=== PATIENT | male | born 1960 | race Caucasian/White ===

== ENCOUNTER → 2017-07-13 | Outpatient (CLI) | payer OTHER ==
[~2017-07-13] MED LIST: /ESOM40CA OR; ASPI325T OR; BISO10TA2 OR; GLUC1000 OR; LISI20TA5 OR; PLAV75TA2 OR; REQU4TAB3 OR; SIMV40TA2 OR; SYMB80AE IN; SYMB80AE INH; VENTAER IN
--- NOTE | 2017-07-14 07:35 | REP ---
Clinical: Carotid stenosis history of hypertension and cardiac stenting. Technique: Jessica scale and color Doppler evaluation using linear high frequency transducer Findings: Two-dimensional jessica scale and color images demonstrate smooth bilateral intimal thickening and small amounts of mixed plaque material at the carotid bulbs and proximal internal carotid arteries with normal laminar flow and no appreciable narrowing. Color Doppler interrogation demonstrates normal arterial wave patterns and velocities with no significant spectral broadening. Normal flow direction is appreciated in the bilateral vertebral arteries. RIGHT (cm/s) LEFT (cm/s) ICA peak systolic velocity 62.4 39.6 ICA diastolic velocity 28.7 14.0 ECA peak systolic velocity 56.7 959.8 CCA peak systolic velocity 75.6 86.1 ICA/CCA ratio 0.83 0.46 Impression: No hemodynamically significant areas of narrowing or stenosis appreciated. Based on set standards narrowing falls within the less than 50% range. Signed by Parag Foster MD 07/14/2017 07:27 A
== END ==
LOC: M RAD 13:02
PROVIDERS: ATTEND Surgery Vascular Surgery
DX: I65.23 Occlusion and stenosis of bilateral carotid arteries (principal)

== ENCOUNTER → 2017-11-16 | Outpatient (CLI) | payer OTHER | LOC: M WUC 08:00 | DX: N50.819 Testicular pain, unspecified (principal) ==

== ENCOUNTER → 2017-11-16 | Outpatient (REF) | payer OTHER | LOC: M LAB REF 17:25 | DX: N50.812 Left testicular pain (principal) | CPT/HCPCS: 87086 ==

== ENCOUNTER → 2017-11-16 | Outpatient (CLI) | payer OTHER ==
[2017-11-16 16:21] LABS: BASO % 0.4 % (0.0-1.0); EOS # 0.1 10^3/uL (0.0-0.50); EOS % 1.2 % (0.0-3.0); HEMATOCRIT 53.3 % (42.0-52.0); HEMOGLOBIN 17.5 g/dl (14.0-18.0); IMMATURE GRANULOCYTE # 0.1 10^3/uL (0-0); IMMATURE GRANULOCYTE % 0.6 % (0-0); LYMPH # 1.3 10^3/uL (1.5-4.5); LYMPH % 16.1 % (24.0-44.0); MEAN CORPUSCULAR HEMOGLOBIN 29.5 pg (27.0-33.0); MEAN CORPUSCULAR HGB CONC 32.8 g/dl (32.0-36.5); MEAN CORPUSCULAR VOLUME 89.7 fl (80.0-96.0); MONO # 0.5 10^3/uL (0.0-0.8); MONO % 5.8 % (0.0-5.0); NEUTROPHILS # 5.9 10^3/uL (1.8-7.7); NEUTROPHILS % 75.9 % (36.0-66.0); PLATELET COUNT, AUTOMATED 281 10^3/uL (150-450); RED BLOOD COUNT 5.94 10^6/uL (4.30-6.10); RED CELL DISTRIBUTION WIDTH 13.8 % (11.5-14.5); WHITE BLOOD COUNT 7.8 10^3/uL (4.0-10.0)
[2017-11-16 16:24] LABS: SUSPECT SAMPLE POS FLAG
== END ==
LOC: M LAB 14:02
DX: N50.819 Testicular pain, unspecified (principal)
CPT/HCPCS: 76870

== ENCOUNTER → 2017-11-26 | Outpatient (REF) | payer OTHER ==
[2017-11-26 18:07] LABS: APPEARANCE, URINE HAZY (CLEAR); BACTERIA, URINE AUTO NEGATIVE (NEGATIVE); BILIRUBIN, URINE AUTO NEGATIVE (NEGATIVE); BLOOD, URINE BLOOD NEGATIVE (NEGATIVE); COLOR, URINE YELLOW (YELLOW); GLUCOSE, URINE (UA) AUTO NEGATIVE (NEGATIVE); KETONE, URINE AUTO NEGATIVE (NEGATIVE); LEUKOCYTE ESTERASE, URINE AUTO NEGATIVE (NEGATIVE); NITRITE, URINE AUTO NEGATIVE (NEGATIVE); PROTEIN, URINE AUTO NEGATIVE (NEGATIVE); RBC, URINE AUTO 3 /HPF (0-3); SPECIFIC GRAVITY URINE AUTO 1.018 (1.002-1.035); SQUAMOUS EPITHELIAL CELL UR AU 0 /HPF (0-6); UROBILINOGEN, URINE AUTO 0.2 mg/dL (0.0-2.0); WBC, URINE AUTO 3 /HPF (0-3)
== END ==
LOC: M SMT 17:09
DX: N50.819 Testicular pain, unspecified (principal)
CPT/HCPCS: 81001

== ENCOUNTER → 2017-12-28 | Outpatient (CLI) | payer OTHER ==
[2017-12-28 16:49] LABS: ANION GAP 4 MEQ/L (8-16); BLOOD UREA NITROGEN 12 MG/DL (7-18); CALCIUM LEVEL 8.7 MG/DL (8.5-10.1); CARBON DIOXIDE LEVEL 30 MEQ/L (21-32); CHLORIDE LEVEL 107 MEQ/L (98-107); CREATININE FOR GFR 0.83 MG/DL (0.70-1.30); GLOMERULAR FILTRATION RATE > 60.0 (>56); GLUCOSE, FASTING 86 MG/DL (70-100); POTASSIUM SERUM 4.8 MEQ/L (3.5-5.1); SODIUM LEVEL 141 MEQ/L (136-145)
== END ==
LOC: M LAB 15:53
DX: R10.9 Unspecified abdominal pain (principal)
CPT/HCPCS: 80048

== ENCOUNTER → 2018-01-04 | Outpatient (CLI) | payer OTHER ==
[~2018-01-04] MED LIST changes: -/ESOM40CA OR; -ASPI325T OR; -BISO10TA2 OR; -GLUC1000 OR; +ISOVUE-370 76% 100ML VIAL (Q9967) As Ordered; -LISI20TA5 OR; -PLAV75TA2 OR; -REQU4TAB3 OR; -SIMV40TA2 OR; -SYMB80AE IN; -SYMB80AE INH; -VENTAER IN
== END ==
LOC: M RAD 14:37
DX: N40.0 Benign prostatic hyperplasia without lower urinary tract symptoms (principal); K76.0 Fatty (change of) liver, not elsewhere classified; K57.30 Diverticulosis of large intestine without perforation or abscess without bleeding
CPT/HCPCS: Q9967

== ENCOUNTER → 2018-01-08 | Outpatient (CLI) | payer OTHER ==
[2018-01-09 14:10] LABS: PSA TOTAL 1.1 ng/mL (0.0-4.0)
== END ==
LOC: M SMT 09:58
DX: N50.819 Testicular pain, unspecified (principal)
CPT/HCPCS: 84154

== ENCOUNTER → 2018-09-06 | Outpatient (CLI) | payer OTHER | LOC: M RAD 11:51 | DX: J20.8 Acute bronchitis due to other specified organisms (principal) | CPT/HCPCS: 71046 ==

== ENCOUNTER → 2019-01-31 | Outpatient (CLI) | payer MEDICARE ==
[~2019-01-31] MED LIST changes: +ASPI325T OR; +BISO10TA2 OR; +GLUC1000 OR; -ISOVUE-370 76% 100ML VIAL (Q9967) As Ordered; +LISI20TA5 OR; +NEXI1CAP3 OR; +PLAV75TA2 OR; +REQU4TAB3 OR; +SIMV40TA2 OR; +SYMB80AE IN; +SYMB80AE INH; +VENTAER IN
== END ==
LOC: M LAB 11:22
PROVIDERS: ATTEND Nurse Practitioner Women's Health
DX: Z12.5 Encounter for screening for malignant neoplasm of prostate (principal)
CPT/HCPCS: 36415; G0103

== ENCOUNTER → 2019-05-25 | Outpatient (CLI) | payer MEDICARE ==
--- NOTE | 2019-05-26 06:17 | REP ---
Clinical: Stenosis. History of right endarterectomy . Technique: Jessica scale and color Doppler evaluation using linear high frequency transducer Findings: Two-dimensional jessica scale and color images demonstrate bilateral intimal thickening with normal arterial lumen, laminar flow and no appreciable narrowing. Color Doppler interrogation demonstrates normal arterial wave patterns and velocities with no significant spectral broadening. Normal flow direction is appreciated in the bilateral vertebral arteries. RIGHT (cm/s) LEFT (cm/s) ICA peak systolic velocity 36.4 40.6 ICA diastolic velocity 15.4 15.3 ECA peak systolic velocity 68.2 77.7 CCA peak systolic velocity 89.5 77.4 ICA/CCA ratio 0.4 0.5 Impression: No hemodynamically significant areas of narrowing or stenosis appreciated. Based on set standards narrowing falls within the normal/less than 50% range. Electronically Signed by Parag Foster MD 05/26/2019 06:09 A
== END ==
LOC: M RAD 12:55
PROVIDERS: ATTEND Physician Assistant
DX: I65.23 Occlusion and stenosis of bilateral carotid arteries (principal)

== ENCOUNTER 2019-07-26 12:14 | Emergency (ER) | payer MEDICARE ==
[~2019-07-26] VITALS: Ht 170.2 cm; Wt 109.5 kg
[2019-07-26] MEDS ORDERED: METO1TAB87 PO (12:33)
[2019-07-26] MEDS ORDERED: METF500T13 PO (12:33)
[2019-07-26] MEDS ORDERED: ATOR40TA75 PO (12:33)
[2019-07-26] MEDS ORDERED: CHLO125TA PO (12:33)
[2019-07-26] MEDS ORDERED: ASPI81CH33 PO (12:33)
[2019-07-26] MEDS ORDERED: TIMO0.5S29 (12:33)
[2019-07-26] MEDS ORDERED: CHAN1PAK13 PO (12:33)
[2019-07-26] MEDS ORDERED: NITR0.4S14 SL (12:33)
[2019-07-26] MEDS ORDERED: BIMA01SOL OD (12:33)
[2019-07-26] MEDS ORDERED: ASPIRIN 81 MG CHEW TABLET PO ONE (13:00)
[2019-07-26] MEDS: NITROGLYCERIN 0.4 MG SUBL TABLET SL PRN ×2 (13:27→13:40)
--- NOTE | 2019-07-26 13:27 | REP ---
Portable chest, 12:51 p.m., single AP view with the patient semi upright: Comparison is 09/06/2018. There are chronic stable changes consisting of multiple old right rib fractures, multiple tiny metallic shrapnel fragments in the right posterior chest wall soft tissues, right paramediastinal surgical clips, and volume loss in the right knee thorax with elevation of the right hemidiaphragm. There are no acute infiltrates or pleural effusions. There are no masses or nodules. There are sternotomy wires, unchanged. Cardiac size is enlarged, unchanged. Impression: There are chronic stable findings in the right hemithorax. There is chronic cardiomegaly and sternotomy wires. There are no acute cardiopulmonary findings. Electronically Signed by Abelardo Triana MD 07/26/2019 01:18 P
[2019-07-26 13:40] VITALS: BP 107/59
[2019-07-26 13:47] LABS: ALBUMIN 3.8 GM/DL (3.2-5.2); ALT/SGPT 61 U/L (12-78); BILIRUBIN,DIRECT < 0.1 MG/DL (0.0-0.2); BILIRUBIN,TOTAL 0.7 MG/DL (0.2-1.0); BLOOD UREA NITROGEN 15 MG/DL (7-18); CALCIUM LEVEL 8.8 MG/DL (8.5-10.1); CARBON DIOXIDE LEVEL 27 MEQ/L (21-32); CHLORIDE LEVEL 103 MEQ/L (98-107); CK-MB VALUE MASS 1.4 NG/ML (<3.6); CPK CREATINE PHOSPHOKINASE 203 U/L (39-308); CREATININE FOR GFR 0.96 MG/DL (0.70-1.30); GLOMERULAR FILTRATION RATE > 60.0 (>56); GLUCOSE, FASTING 111 MG/DL (70-100); LIPASE 152 U/L (73-393); MB/CK RELATIVE INDEX 0.69 (< OR =4); POTASSIUM SERUM 5.9 MEQ/L (3.5-5.1); SODIUM LEVEL 137 MEQ/L (136-145); TOTAL PROTEIN 7.8 GM/DL (6.4-8.2); TROPONIN I < 0.02 NG/ML (< 0.10)
[2019-07-26 13:52] LABS: BASO # 0.1 10^3/uL (0.0-0.2); BASO % 0.6 % (0.0-1.0); EOS # 0.1 10^3/uL (0.0-0.5); EOS % 1.7 % (0.0-3.0); HEMATOCRIT 51.7 % (42.0-52.0); LYMPH # 1.1 10^3/uL (1.5-5.0); LYMPH % 13.9 % (24.0-44.0); MEAN CORPUSCULAR HEMOGLOBIN 30.1 pg (27.0-33.0); MEAN CORPUSCULAR HGB CONC 33.1 g/dl (32.0-36.5); MEAN CORPUSCULAR VOLUME 90.9 fl (80.0-96.0); MONO # 0.6 10^3/uL (0.0-0.8); MONO % 7.2 % (0.0-5.0); NEUTROPHILS # 6.1 10^3/uL (1.5-8.5); NEUTROPHILS % 75.7 % (36.0-66.0); PLATELET COUNT, AUTOMATED 232 10^3/uL (150-450); RED BLOOD COUNT 5.69 10^6/uL (4.30-6.10)
[2019-07-26 13:53] LABS: INR 0.94; PROTHROMBIN TIME 12.3 SECONDS (11.8-14.0)
[2019-07-26 13:54] LABS: PARTIAL THROMBOPLASTIN TIME 28.7 SECONDS (25.0-38.4)
[2019-07-26 13:57] LABS: HEMOGLOBIN 17.1 g/dl (13.5-17.5)
[2019-07-26] MEDS ORDERED: ISOVUE-370 76% 100ML VIAL (Q9967) As Ordered ONE (14:55)
--- NOTE | 2019-07-26 15:40 | REP ---
CT ANGIOGRAM CHEST: TECHNIQUE: Axial contrast enhanced images from the thoracic inlet to the upper abdomen using 100 mL Isovue 370 intravenous contrast material with multiplanar reformations. COMPARISON: 07/10/2013. There is no CT evidence of pulmonary embolism. There is no thoracic aortic aneurysm or dissection. Mild scattered atherosclerotic calcifications are seen of the thoracic aorta. There is mild cardiomegaly. There is no pleural or pericardial effusion. There is no evidence of mediastinal, hilar, or chest wall lymphadenopathy. There has been prior right upper lobectomy with postsurgical deformities of right ribs and stable bilateral parenchymal fibrotic changes. A 4 mm nodular density in the left upper lobe is stable compared to the prior CT. No new infiltrates are seen bilaterally. There are degenerative changes of the spine. There appears to be diffuse fatty infiltration of the liver. IMPRESSION: No CT evidence of pulmonary embolism or aortic dissection. Mild cardiomegaly. Chronic postsurgical and fibrotic changes. Electronically Signed by Abelardo Jessica MD 07/27/2019 06:08 P
[2019-07-26 19:10] LABS: CK-MB VALUE MASS 1.2 NG/ML (<3.6); CPK CREATINE PHOSPHOKINASE 93 U/L (39-308); MB/CK RELATIVE INDEX 1.29 (< OR =4); TROPONIN I < 0.02 NG/ML (< 0.10)
[2019-07-26 19:52] VITALS: BP 149/85
--- NOTE | 2019-07-26 20:37 | ECGEPIP ---
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
--- NOTE | 2019-07-26 20:47 | ECGEPIP ---
[facility] - ED Test Date: 2019-07-26 Pat Name: HALLE TRISTAN Department: Room: - Gender: Male [employer]er: joie : 1960 Requested By: NIK Ruiz Order Number: [id number] Reading MD: Serg Tobias Measurements Intervals [place] Rate: 66 P: 31 [place]: 172 QRS: 128 QRSD: 88 T: 93 QT: 372 QTc: 392 Interpretive Statements SINUS RHYTHM POSSIBLE PRIOR INFERIOR INFARCT PATTERN CONSISTENT WITH PULMONARY DISEASE INCOMPLETE RIGHT BUNDLE BRANCH BLOCK NONSPECIFIC T WAVE ABNORMALITIES SIMILAR TO PRIOR ON SAME DATE Electronically Signed on 07-26-2019 20:47:53 EDT by Serg Tobias
== END 2019-07-26 19:53 | disposition home or self-care (01) ==
LOC: M ED 12:14
DX: R07.89 Other chest pain (principal); I51.7 Cardiomegaly; Z95.1 Presence of aortocoronary bypass graft; Z95.5 Presence of coronary angioplasty implant and graft; F17.210 Nicotine dependence, cigarettes, uncomplicated; Z88.0 Allergy status to penicillin; Z79.899 Other long term (current) drug therapy
CPT/HCPCS: 36415; 71045; 71275; 80048; 80076; 82550; 82553; 83690; 84484; 85025; 85610; 85730; 93005; 93041; 94760; 99285; Q9967

== ENCOUNTER → 2019-08-19 | Outpatient (CLI) | payer MEDICARE ==
[~2019-08-19] MED LIST changes: +ASPI81CH33 PO; +ATOR40TA75 PO; +BIMA01SOL OD; +CHAN1PAK13 PO; +CHLO125TA PO; +METF500T13 PO; +METO1TAB87 PO; +NITR0.4S14 SL; +TIMO0.5S29
[2019-08-19 12:03] LABS: ALBUMIN 3.6 GM/DL (3.2-5.2); ALT/SGPT 48 U/L (12-78); BILIRUBIN,TOTAL 0.3 MG/DL (0.2-1.0); BLOOD UREA NITROGEN 11 MG/DL (7-18); CALCIUM LEVEL 8.9 MG/DL (8.5-10.1); CARBON DIOXIDE LEVEL 31 MEQ/L (21-32); CHLORIDE LEVEL 102 MEQ/L (98-107); CHOLESTEROL LEVEL 193 MG/DL (<200); CHOLESTEROL RISK RATIO 4.825 (<5); CREATININE FOR GFR 0.96 MG/DL (0.70-1.30); GLOMERULAR FILTRATION RATE > 60.0 (>56); GLUCOSE, FASTING 141 MG/DL (70-100); HDL CHOLESTEROL 40 MG/DL (>40); LDL CHOLESTEROL 104 MG/DL (<100); NON-HDL-C 153 MG/DL; NT-PRO BNP 43 PG/ML (<125); POTASSIUM SERUM 4.7 MEQ/L (3.5-5.1); SODIUM LEVEL 139 MEQ/L (136-145); TRIGLYCERIDES LEVEL 243 MG/DL (<150)
== END ==
LOC: M LAB 10:28
PROVIDERS: ATTEND Physician Assistant
DX: E78.00 Pure hypercholesterolemia, unspecified (principal)

== ENCOUNTER → 2019-11-23 | Outpatient (CLI) | payer MEDICARE ==
--- NOTE | 2019-11-23 14:56 | REP ---
Bilateral carotid artery duplex ultrasound: Peak flow velocity analysis: RIGHT LEFT ICA Peak flow velocity cm/sec 63.1 cm/sec 64.9 cm/sec ICA Diastolic flow velocity cm/sec 20 point a cm/sec 22 point see cm/sec ICA/CCA Ratio zero point, seventh cm/sec 0.81 cm/sec ECA Peak flow velocity cm/sec 90.4 cm/sec 112 cm/sec CCA Peak flow velocity cm/sec 120 cm/sec 121 cm/sec There is shallow atheromatous plaque on the right and moderate atheromatous plaque on the left. Peak flow velocities are normal bilaterally. There is no stenosis on the right or the left. There is antegrade flow in the vertebral arteries bilaterally. Electronically Signed by Abelardo Triana MD 11/23/2019 02:48 P
== END ==
LOC: M RAD 09:55
PROVIDERS: ATTEND Internal Medicine
DX: I65.23 Occlusion and stenosis of bilateral carotid arteries (principal)

== ENCOUNTER → 2020-09-04 | Outpatient (CLI) | payer MEDICARE ==
--- NOTE | 2020-09-05 03:11 | REP ---
INDICATION: CHRONIC OBSTRUCTIVE PULMONARY DISEASE, UNSPECIFIED COMPARISON: 07/26/2019 TECHNIQUE: PA and lateral. FINDINGS: Chronic appearing pleuroparenchymal changes involving the right hemithorax remain relatively stable. Left hemithorax is clear. Visualized portions of the mediastinum and cardiac silhouette remain unchanged. IMPRESSION: Relatively chronic stable appearing changes as compared to 07/26/2019. If the patient remains symptomatic consider chest CT for further investigation. <Electronically signed by Parag Foster > 09/05/20 [id number]
== END ==
LOC: M RAD 13:05
PROVIDERS: ATTEND Internal Medicine Pulmonary Disease
DX: J44.9 Chronic obstructive pulmonary disease, unspecified (principal)

== ENCOUNTER → 2021-03-27 | Outpatient (CLI) | payer MEDICARE ==
--- NOTE | 2021-03-28 06:05 | REP ---
INDICATION: NICOTINE DEPENDENCE COMPARISON: 07/26/2019 TECHNIQUE: Axial noncontrast images from the thoracic inlet to the upper abdomen using low-dose lung screening technique (LDCT). FINDINGS: Postsurgical pleuroparenchymal changes and volume loss involving the right hemithorax including primarily apical and basilar scarring as well as stable 8.5 mm nodule (series 201; image 52). No acute focal consolidation, suspicious nodule or mass lesion. No effusion. No pneumothorax. Tracheobronchial tree is patent. IMPRESSION: Lung rads category 2. Chronic changes. Stable 8.5 mm nodule. Management recommendations include annual low-dose CT surveillance. <Electronically signed by Parag Foster > 03/28/21 0601
== END ==
LOC: M RAD 12:35
PROVIDERS: ATTEND Internal Medicine Pulmonary Disease
DX: F17.210 Nicotine dependence, cigarettes, uncomplicated (principal)

== ENCOUNTER 2021-12-23 14:37 | Emergency (ER) | payer MEDICARE ==
[~2021-12-23] VITALS: Ht 172.7 cm; Wt 105.2 kg
[2021-12-23] MEDS ORDERED: FURO20TA2 PO (14:44)
[2021-12-23 16:54] VITALS: BP 158/92
== END 2021-12-23 17:18 | disposition home or self-care (01) ==
LOC: M ED 14:37
DX: S00.03XA Contusion of scalp, initial encounter (principal); W00.0XXA Fall on same level due to ice and snow, initial encounter; Y92.009 Unspecified place in unspecified non-institutional (private) residence as the place of occurrence of the external cause; Y93.9 Activity, unspecified; Y99.9 Unspecified external cause status; M47.812 Spondylosis without myelopathy or radiculopathy, cervical region; M48.02 Spinal stenosis, cervical region; I25.2 Old myocardial infarction; I25.10 Atherosclerotic heart disease of native coronary artery without angina pectoris; J44.9 Chronic obstructive pulmonary disease, unspecified; F17.200 Nicotine dependence, unspecified, uncomplicated; Z88.8 Allergy status to other drugs, medicaments and biological substances; Z79.899 Other long term (current) drug therapy

== ENCOUNTER → 2022-01-02 | Outpatient (CLI) | payer MEDICARE ==
[~2022-01-02] MED LIST changes: +FURO20TA2 PO
== END ==
LOC: M RAD 14:18
PROVIDERS: ATTEND Internal Medicine
DX: I65.29 Occlusion and stenosis of unspecified carotid artery (principal)

== ENCOUNTER → 2022-05-30 | Outpatient (CLI) | payer MEDICARE | LOC: M WUC 14:31 | PROVIDERS: ATTEND Physician Assistant Medical | DX: M19.011 Primary osteoarthritis, right shoulder (principal); R93.6 Abnormal findings on diagnostic imaging of limbs; Z98.890 Other specified postprocedural states ==

== ENCOUNTER → 2022-07-16 | Outpatient (CLI) | payer MEDICARE | LOC: M RAD 14:53 | PROVIDERS: ATTEND Internal Medicine Pulmonary Disease | DX: Z87.891 Personal history of nicotine dependence (principal); F17.210 Nicotine dependence, cigarettes, uncomplicated ==

== ENCOUNTER → 2022-11-14 | Outpatient (CLI) | payer MEDICARE | LOC: M CARPUL 10:23 | PROVIDERS: ATTEND Internal Medicine | DX: R06.00 Dyspnea, unspecified (principal); I08.0 Rheumatic disorders of both mitral and aortic valves ==

== ENCOUNTER → 2022-12-22 | Outpatient (REF) | payer MEDICARE | LOC: M LAB REF 16:02 | PROVIDERS: ATTEND Internal Medicine | DX: R06.00 Dyspnea, unspecified (principal); I50.33 Acute on chronic diastolic (congestive) heart failure ==

== ENCOUNTER → 2022-12-23 | Outpatient (CLI) | payer MEDICARE | LOC: M WUC 13:37 | PROVIDERS: ATTEND Internal Medicine | DX: M54.2 Cervicalgia (principal) ==

== ENCOUNTER → 2023-07-30 | Outpatient (CLI) | payer MEDICARE ==
[~2023-07-30] MED LIST changes: +TIMO0.5S20; -TIMO0.5S29
== END ==
LOC: M RAD 07:41
PROVIDERS: ATTEND Internal Medicine Pulmonary Disease
DX: Z87.891 Personal history of nicotine dependence (principal)

== ENCOUNTER → 2024-03-15 | Outpatient (REF) | payer MEDICARE ==
[2024-03-17 08:11] LABS: ERYTHROPOIETIN 15.9 mIU/mL (2.6-18.5)
== END ==
LOC: M LAB REF 17:28
PROVIDERS: ATTEND Internal Medicine
DX: R71.8 Other abnormality of red blood cells (principal)

== ENCOUNTER 2024-04-11 16:12 | Emergency (ER) | payer OTHER ==
[~2024-04-11] VITALS: Ht 170.2 cm; Wt 99.1 kg
[2024-04-11 16:19] VITALS: TEMP 97.5
[2024-04-11] MEDS ORDERED: EZET10TA21 PO (16:29)
[2024-04-11] MEDS ORDERED: SEMA1PEN2 SQ (16:30)
[2024-04-11 18:15] LABS: BASO # 0.1 10^3/uL (0.0-0.2); BASO % 0.8 % (0.0-1.0); EOS # 0.5 10^3/uL (0.0-0.5); EOS % 3.7 % (0.0-3.0); HEMATOCRIT 68.8 % (42.0-52.0); LYMPH # 1.3 10^3/uL (1.5-5.0); LYMPH % 9.8 % (24.0-44.0); MEAN CORPUSCULAR HEMOGLOBIN 29.7 pg (27.0-33.0); MEAN CORPUSCULAR HGB CONC 32.7 g/dl (32.0-36.5); MEAN CORPUSCULAR VOLUME 90.8 fl (80.0-96.0); MONO # 0.9 10^3/uL (0.0-0.8); MONO % 6.9 % (2.0-8.0); NEUTROPHILS % 77.1 % (36.0-66.0); PLATELET COUNT, AUTOMATED 258 10^3/uL (150-450); RED BLOOD COUNT 7.58 10^6/uL (4.30-6.10)
[2024-04-11 18:17] LABS: HEMOGLOBIN 22.5 g/dl (13.5-17.5)
[2024-04-11 18:46] LABS: BLOOD UREA NITROGEN 16 MG/DL (9-23); CALCIUM LEVEL 8.9 MG/DL (8.3-10.6); CARBON DIOXIDE LEVEL 25 MMOL/L (20-31); CHLORIDE LEVEL 103 MMOL/L (98-107); CREATININE FOR GFR 1.16 MG/DL (0.70-1.30); GLOMERULAR FILTRATION RATE > 60.0 (>49); GLUCOSE, FASTING 191 MG/DL (74-106); POTASSIUM SERUM 4.4 MMOL/L (3.5-5.1); SODIUM LEVEL 138 MMOL/L (136-145)
[2024-04-11] MEDS: SODIUM CHLORIDE 0.9% 1000ML IV STA (19:09)
[2024-04-11] MEDS: ONDANSETRON 4MG 2ML VIAL IV ONE (19:10)
[2024-04-11] MEDS: PANTOPRAZOLE 40MG VIAL IV ONE (19:10)
[2024-04-11 19:46] LABS: INR 1.07
[2024-04-11 19:54] LABS: PARTIAL THROMBOPLASTIN TIME 29.6 SECONDS (24.8-34.2); PROTHROMBIN TIME 13.6 SECONDS (12.5-14.5)
[2024-04-11 19:55] LABS: ETHYL ALCOHOL (ETHANOL) 0.006 % (0.000-0.010)
[2024-04-11 20:00] LABS: ALBUMIN 3.2 G/DL (3.2-5.2); ALKALINE PHOSPHATASE 144 U/L (46-116); ALT/SGPT 21 U/L (7.0-40); AST/SGOT 21 U/L (<34); BILIRUBIN,DIRECT 0.1 MG/DL (<0.4); BILIRUBIN,TOTAL 0.4 MG/DL (0.3-1.2); CK-MB VALUE MASS < 1.0 NG/ML (<3.6); CPK CREATINE PHOSPHOKINASE 58 U/L (46-171); MB/CK RELATIVE INDEX 1.72 (< OR =4); TOTAL PROTEIN 6.8 G/DL (5.7-8.2)
[2024-04-11] MEDS ORDERED: ROPI2TAB46 PO (21:05)
[2024-04-11] MEDS ORDERED: METO1TAB32 PO (21:05)
[2024-04-11] MEDS ORDERED: CLOP75TA2 PO (21:05)
[2024-04-11] MEDS ORDERED: TREL1AER INH (21:05)
[2024-04-11] MEDS ORDERED: ALBU8.5H INH (21:05)
[2024-04-11] MEDS ORDERED: FURO40TA2 PO (21:05)
[2024-04-11] MEDS ORDERED: ATOR80TA59 PO (21:05)
[2024-04-11] MEDS ORDERED: HOME MED LIST COMPLETE! XX SCH (21:10)
[2024-04-11 21:17] VITALS: BP 133/63; O2SAT 93
== END 2024-04-11 21:52 | disposition left against medical advice (07) ==
LOC: M ED 16:12
DX: K31.1 Adult hypertrophic pyloric stenosis (principal); N20.0 Calculus of kidney; I10 Essential (primary) hypertension; F17.200 Nicotine dependence, unspecified, uncomplicated; Z88.0 Allergy status to penicillin; Z79.52 Long term (current) use of systemic steroids; Z79.82 Long term (current) use of aspirin; Z79.899 Other long term (current) drug therapy; Z79.02 Long term (current) use of antithrombotics/antiplatelets
CPT/HCPCS: 74176; 80048; 80076; 82077; 82550; 82553; 84484; 85025; 85610; 85730; 86850; 86900; 86901; 96374; 96375; 99284; C9113; J2405

== ENCOUNTER 2024-04-15 18:14 | Inpatient (IN) | payer OTHER ==
[~2024-04-15] VITALS: Ht 172.7 cm; Wt 100.0 kg
[~2024-04-15 18:14] MED LIST changes: +ALBU8.5H INH; +ATOR80TA59 PO; +CLOP75TA2 PO; +EZET10TA21 PO; +FURO40TA2 PO; +METO1TAB32 PO; +ROPI2TAB46 PO; +SEMA1PEN2 SQ; +TREL1AER INH
[2024-04-15 19:33] LABS: HEMATOCRIT 67.1 % (42.0-52.0); MEAN CORPUSCULAR HGB CONC 34.4 g/dl (32.0-36.5); PLATELET COUNT, AUTOMATED 284 10^3/uL (150-450); RED BLOOD COUNT 7.71 10^6/uL (4.30-6.10); WHITE BLOOD COUNT 21.3 10^3/uL (4.0-10.0)
[2024-04-15 19:37] LABS: HEMOGLOBIN 23.1 g/dl (13.5-17.5)
[2024-04-15 19:51] LABS: LIPASE 24 U/L (12-53)
[2024-04-15 20:02] LABS: CK-MB VALUE MASS 2.2 NG/ML (<3.6)
[2024-04-15 20:05] LABS: EOSINOPHILS 4 % (0-3); LYMPHOCYTES 12 % (16-44); MONOCYTES 6 % (0-5); NEUTROPHILS 76 % (28-66); PLATELET ESTIMATE NORMAL (NORMAL)
[2024-04-15] MEDS ORDERED: ONDANSETRON 4MG 2ML VIAL IV ONE (20:05)
[2024-04-15 20:06] LABS: ANISOCYTOSIS 1+
[2024-04-15] MEDS: ONDANSETRON 4MG 2ML VIAL IV ONE (20:06)
[2024-04-15] MEDS: NS 1,000 ML IV ONE (20:06)
[2024-04-15] MEDS: MORPHINE 4 MG/ML 1ML VIAL IV ONE (20:08)
[2024-04-15 20:24] LABS: ALBUMIN 3.1 G/DL (3.2-5.2); ALKALINE PHOSPHATASE 190 U/L (46-116); ALT/SGPT 21 U/L (7.0-40); AST/SGOT 12 U/L (<34); BILIRUBIN,DIRECT 0.2 MG/DL (<0.4); BILIRUBIN,TOTAL 0.4 MG/DL (0.3-1.2); BLOOD UREA NITROGEN 20 MG/DL (9-23); CALCIUM LEVEL 8.4 MG/DL (8.3-10.6); CARBON DIOXIDE LEVEL 18 MMOL/L (20-31); CREATININE FOR GFR 1.97 MG/DL (0.70-1.30); GLOMERULAR FILTRATION RATE 36.7 (>49); GLUCOSE, FASTING 216 MG/DL (74-106); TOTAL PROTEIN 6.7 G/DL (5.7-8.2)
[2024-04-15 20:33] LABS: CPK CREATINE PHOSPHOKINASE 71 U/L (46-171); MB/CK RELATIVE INDEX 3.09 (< OR =4)
[2024-04-15 20:58] LABS: INR 1.12
[2024-04-15 21:01] LABS: PARTIAL THROMBOPLASTIN TIME 31.9 SECONDS (24.8-34.2)
[2024-04-15 21:22] LABS: CALCIUM LEVEL 8.3 MG/DL (8.3-10.6); CREATININE FOR GFR 2.21 MG/DL (0.70-1.30); GLOMERULAR FILTRATION RATE 32.2 (>49); MAGNESIUM LEVEL 1.4 MG/DL (1.8-2.4); PHOSPHORUS LEVEL 6.6 MG/DL (2.4-5.1); POTASSIUM SERUM 3.6 MMOL/L (3.5-5.1)
[2024-04-15 21:38] LABS: ACETONE/KETONE 0.71 MMOL/L (0.02-0.27)
[2024-04-15 21:46] LABS: VENOUS BASE EXCESS -5.2 (-2.0-2.0); VENOUS HCO3 19.9 MMOL/L (23.0-27.0); VENOUS O2 SATURATION 88.5 % (60.0-80.0); VENOUS PARTIAL PRESSURE CO2 38.7 mmHg (38.0-50.0); VENOUS PARTIAL PRESSURE O2 55.3 mmHg (30.0-50.0); VENOUS STANDARD HCO3 20.1 MMOL/L; VENOUS TOTAL CO2 21.1 MMOL/L (24.0-28.0)
[2024-04-15] MEDS: rOPINIRole 2MG TAB PO SCH (22:00)
[2024-04-15] MEDS: cefTRIAXone SOD 1 GM in D5W MINI-BAG PLUS 50 ML IV ONE (22:04)
[2024-04-15] MEDS: NS 1,900 ML in IV 1 EA IV ONE (22:04)
[2024-04-15] MEDS ORDERED: ONDA-83 PO (22:40)
[2024-04-15] MEDS ORDERED: ROPI2TAB46 PO (22:40)
[2024-04-15] MEDS ORDERED: HOME MED LIST COMPLETE! XX SCH (22:45)
[2024-04-15] MEDS: MAG SULF 1GM/100ML (MAG RUN) 1 GM in IV 1 EA IV ONE (22:56)
[2024-04-16] VITALS (7 sets, daily range): BP systolic 110–140; BP diastolic 55–75; TEMP 96.5–97.5; O2SAT 93–95
[2024-04-16] MEDS ORDERED: ACETAMINOPHEN TAB 650MG DOSE (2X325MG) PO PRN (00:15)
[2024-04-16] MEDS ORDERED: GLUCOSE 4 GM CHEW PO PRN (00:20)
[2024-04-16] MEDS ORDERED: DEXTROSE 50% 50ML SYRINGE IV PRN (00:20)
[2024-04-16] MEDS ORDERED: GLUCAGON INJ 1MG VIAL SC PRN (00:20)
[2024-04-16] MEDS: LR 1,000 ML IV ONE (00:42)
[2024-04-16] MEDS: metroNIDAZOLE 500 MG in IV 1 EA IV SCH (00:42)
[2024-04-16] MEDS ORDERED: ONDANSETRON 4MG 2ML VIAL IV PRN (02:00)
[2024-04-16] MEDS: KCL 20MEQ in NS 1000ML 1,000 ML IV SCH (02:17)
[2024-04-16] MEDS ORDERED: ALBUTEROL 90 MCG/ACT 8GM HFA INHALER INH SCH (04:00)
[2024-04-16 04:32] LABS: HEMATOCRIT 58.2 % (42.0-52.0); MEAN CORPUSCULAR HEMOGLOBIN 29.7 pg (27.0-33.0); MEAN CORPUSCULAR HGB CONC 33.8 g/dl (32.0-36.5); MEAN CORPUSCULAR VOLUME 87.8 fl (80.0-96.0); PLATELET COUNT, AUTOMATED 205 10^3/uL (150-450); RED BLOOD COUNT 6.63 10^6/uL (4.30-6.10); WHITE BLOOD COUNT 20.6 10^3/uL (4.0-10.0)
[2024-04-16 04:34] LABS: HEMOGLOBIN 19.7 g/dl (13.5-17.5)
[2024-04-16] MEDS ORDERED: ALBUTEROL 90 MCG/ACT 8GM HFA INHALER INH PRN (04:55)
[2024-04-16 05:05] LABS: ALBUMIN 2.2 G/DL (3.2-5.2); BILIRUBIN,TOTAL 0.3 MG/DL (0.3-1.2); CALCIUM LEVEL 7.3 MG/DL (8.3-10.6); CREATININE FOR GFR 1.55 MG/DL (0.70-1.30); GLOMERULAR FILTRATION RATE 48.5 (>49); MAGNESIUM LEVEL 1.6 MG/DL (1.8-2.4); POTASSIUM SERUM 3.3 MMOL/L (3.5-5.1); TOTAL PROTEIN 4.9 G/DL (5.7-8.2)
[2024-04-16] MEDS: HEPARIN SOD (PORCINE) 5000UNITS/ML 1ML VIAL/SYRINGE SC SCH (06:00)
[2024-04-16] MEDS: ADVAIR HFA 230/21MCG INHALER INH SCH (07:37)
[2024-04-16] MEDS: POTASSIUM CHLORIDE 10MEQ SR TABLET PO ONE (07:53)
[2024-04-16] MEDS: MAG SULF 1GM/100ML (MAG RUN) 1 GM in IV 1 EA IV ONE (07:53)
[2024-04-16] MEDS: INSULIN LISPRO (NovoLOG) PER UNIT SC SCH ×2 (07:53→21:00)
[2024-04-16] MEDS: LR 1,000 ML IV SCH (07:54)
[2024-04-16] MEDS: METOPROLOL SUCC *XL* 25MG TAB (TopROL *XL*) PO SCH (08:00)
[2024-04-16] MEDS: CLOPIDOGREL 75 MG TAB PO SCH (08:00)
[2024-04-16] MEDS: ATORVASTATIN 20 MG TAB PO SCH (08:00)
[2024-04-16] MEDS: ASPIRIN 81MG CHEW TABLET PO SCH (08:00)
[2024-04-16] MEDS: EZETIMIBE 10MG TABLET (ZETIA) PO SCH (08:00)
[2024-04-16] MEDS: cefTRIAXone SOD 1 GM in D5W MINI-BAG PLUS 50 ML IV SCH (22:57)
[2024-04-17 05:01] VITALS: BP 104/63; TEMP 96.5; O2SAT 99
[2024-04-17 06:14] LABS: HEMATOCRIT 54.1 % (42.0-52.0); HEMOGLOBIN 18.3 g/dl (13.5-17.5); MEAN CORPUSCULAR HEMOGLOBIN 30.5 pg (27.0-33.0); MEAN CORPUSCULAR HGB CONC 33.8 g/dl (32.0-36.5); MEAN CORPUSCULAR VOLUME 90.2 fl (80.0-96.0); PLATELET COUNT, AUTOMATED 186 10^3/uL (150-450); WHITE BLOOD COUNT 16.6 10^3/uL (4.0-10.0)
[2024-04-17 06:33] LABS: ALBUMIN 2.5 G/DL (3.2-5.2); ALKALINE PHOSPHATASE 133 U/L (46-116); ALT/SGPT 23 U/L (7.0-40); AST/SGOT 17 U/L (<34); BILIRUBIN,TOTAL 0.3 MG/DL (0.3-1.2); BLOOD UREA NITROGEN 14 MG/DL (9-23); CALCIUM LEVEL 8.3 MG/DL (8.3-10.6); CARBON DIOXIDE LEVEL 29 MMOL/L (20-31); CHLORIDE LEVEL 103 MMOL/L (98-107); CREATININE FOR GFR 1.04 MG/DL (0.70-1.30); GLOMERULAR FILTRATION RATE > 60.0 (>49); GLUCOSE, FASTING 122 MG/DL (74-106); MAGNESIUM LEVEL 2.1 MG/DL (1.8-2.4); POTASSIUM SERUM 3.7 MMOL/L (3.5-5.1); SODIUM LEVEL 140 MMOL/L (136-145); TOTAL PROTEIN 5.4 G/DL (5.7-8.2)
[2024-04-17 08:00] VITALS: BP 102/58; TEMP 96.3; O2SAT 96
[2024-04-17] MEDS: NYSTATIN 100,000 UNITS/GM TOPICAL PWD 15GM TOP SCH (09:26)
[2024-04-17 12:00] VITALS: BP 110/58; TEMP 96.5; O2SAT 96
[2024-04-17] MEDS: LOPERAMIDE 2 MG CAPLET PO PRN (17:30)
[2024-04-17 20:10] VITALS: BP 140/62; TEMP 97.5; O2SAT 97
[2024-04-18 04:26] VITALS: BP 112/67; TEMP 98.1; O2SAT 92
[2024-04-18 07:13] LABS: HEMATOCRIT 49.8 % (42.0-52.0); HEMOGLOBIN 16.7 g/dl (13.5-17.5); MEAN CORPUSCULAR HEMOGLOBIN 29.9 pg (27.0-33.0); MEAN CORPUSCULAR HGB CONC 33.5 g/dl (32.0-36.5); MEAN CORPUSCULAR VOLUME 89.1 fl (80.0-96.0); PLATELET COUNT, AUTOMATED 169 10^3/uL (150-450); RED BLOOD COUNT 5.59 10^6/uL (4.30-6.10); WHITE BLOOD COUNT 15.3 10^3/uL (4.0-10.0)
[2024-04-18 07:39] LABS: ALBUMIN 2.6 G/DL (3.2-5.2); ALKALINE PHOSPHATASE 139 U/L (46-116); ALT/SGPT 38 U/L (7.0-40); AST/SGOT 36 U/L (<34); BILIRUBIN,TOTAL 0.2 MG/DL (0.3-1.2); BLOOD UREA NITROGEN 10 MG/DL (9-23); CALCIUM LEVEL 8.1 MG/DL (8.3-10.6); CARBON DIOXIDE LEVEL 25 MMOL/L (20-31); CHLORIDE LEVEL 105 MMOL/L (98-107); CREATININE FOR GFR 0.83 MG/DL (0.70-1.30); GLOMERULAR FILTRATION RATE > 60.0 (>49); GLUCOSE, FASTING 129 MG/DL (74-106); MAGNESIUM LEVEL 1.8 MG/DL (1.8-2.4); SODIUM LEVEL 137 MMOL/L (136-145); TOTAL PROTEIN 5.3 G/DL (5.7-8.2)
[2024-04-18] MEDS ORDERED: ISOVUE-370 76% 100ML VIAL As Ordered ONE (08:13)
[2024-04-18] MEDS: NICOTINE 14 MG/24 HR TRANSDERMAL TD SCH (08:24)
[2024-04-18 08:25] VITALS: BP 117/72
[2024-04-18] MEDS: GASTROGRAFIN SOLUTION 30ML PO SCH (08:25)
[2024-04-18] MEDS: POTASSIUM CHLORIDE 10MEQ SR TABLET PO SCH (08:25)
[2024-04-18] MEDS ORDERED: META28.32 PO (14:08)
[2024-04-18] MEDS ORDERED: LOPE2CA PO (14:08)
== END 2024-04-18 14:55 | disposition home or self-care (01) | DRG 392 ==
LOC: M ED 18:14 → M ED INP 04-16 00:11 → M PCU 04-16 02:05 → M MS5PR 04-17 13:25
PROVIDERS: ADMIT Preventive Medicine Undersea and Hyperbaric Medicine; ATTEND Internal Medicine
DX: K52.9 Noninfective gastroenteritis and colitis, unspecified (principal); N17.9 Acute kidney failure, unspecified; I25.10 Atherosclerotic heart disease of native coronary artery without angina pectoris; I10 Essential (primary) hypertension; E11.9 Type 2 diabetes mellitus without complications; J44.9 Chronic obstructive pulmonary disease, unspecified; Z87.891 Personal history of nicotine dependence; Z95.5 Presence of coronary angioplasty implant and graft; E86.0 Dehydration; D75.1 Secondary polycythemia; Z79.02 Long term (current) use of antithrombotics/antiplatelets; Z79.82 Long term (current) use of aspirin; Z79.899 Other long term (current) drug therapy; Z88.0 Allergy status to penicillin; E83.42 Hypomagnesemia; E87.6 Hypokalemia

== ENCOUNTER 2024-07-25 16:33 | Emergency (ER) | payer OTHER ==
[~2024-07-25] VITALS: Ht 172.7 cm; Wt 98.8 kg
[~2024-07-25 16:33] MED LIST changes: +LOPE2CA PO; +META28.32 PO; +ONDA-83 PO
[2024-07-25 17:49] LABS: BASO # 0.1 10^3/uL (0.0-0.2); BASO % 0.7 % (0.0-1.0); EOS # 0.3 10^3/uL (0.0-0.5); EOS % 4.2 % (0.0-3.0); HEMATOCRIT 56.3 % (42.0-52.0); HEMOGLOBIN 18.9 g/dl (13.5-17.5); LYMPH # 1.4 10^3/uL (1.5-5.0); MEAN CORPUSCULAR HEMOGLOBIN 30.5 pg (27.0-33.0); MEAN CORPUSCULAR HGB CONC 33.6 g/dl (32.0-36.5); MONO # 0.7 10^3/uL (0.0-0.8); MONO % 8.8 % (2.0-8.0); NEUTROPHILS # 5.6 10^3/uL (1.5-8.5); NEUTROPHILS % 68.8 % (36.0-66.0); PLATELET COUNT, AUTOMATED 265 10^3/uL (150-450); RED BLOOD COUNT 6.19 10^6/uL (4.30-6.10); WHITE BLOOD COUNT 8.1 10^3/uL (4.0-10.0)
[2024-07-25 18:04] LABS: INR 0.99; PARTIAL THROMBOPLASTIN TIME 30.8 SECONDS (24.8-34.2); PROTHROMBIN TIME 12.8 SECONDS (12.5-14.5)
[2024-07-25 18:12] LABS: AMYLASE 33 U/L (30-118); LIPASE 32 U/L (12-53)
[2024-07-25 18:33] LABS: ALBUMIN 3.8 G/DL (3.2-5.2); ALKALINE PHOSPHATASE 108 U/L (46-116); ALT/SGPT 41 U/L (7.0-40); AST/SGOT 19 U/L (<34); BILIRUBIN,DIRECT 0.1 MG/DL (<0.4); BILIRUBIN,TOTAL 0.4 MG/DL (0.3-1.2); BLOOD UREA NITROGEN 16 MG/DL (9-23); CALCIUM LEVEL 9.9 MG/DL (8.3-10.6); CARBON DIOXIDE LEVEL 27 MMOL/L (20-31); CHLORIDE LEVEL 106 MMOL/L (98-107); CREATININE FOR GFR 0.85 MG/DL (0.70-1.30); GLOMERULAR FILTRATION RATE > 60.0 (>49); GLUCOSE, FASTING 99 MG/DL (74-106); POTASSIUM SERUM 4.6 MMOL/L (3.5-5.1); SODIUM LEVEL 141 MMOL/L (136-145); TOTAL PROTEIN 7.8 G/DL (5.7-8.2)
[2024-07-25] MEDS ORDERED: ISOVUE-370 76% 100ML VIAL As Ordered ONE (18:48)
[2024-07-25 18:52] LABS: CK-MB VALUE MASS 1.9 NG/ML (<3.6)
[2024-07-25 19:03] LABS: CPK CREATINE PHOSPHOKINASE 140 U/L (46-171); MB/CK RELATIVE INDEX 1.35 (< OR =4)
[2024-07-25 20:14] LABS: MB/CK RELATIVE INDEX 1.45 (< OR =4)
[2024-07-25] MEDS ORDERED: PERC5TAB12 PO (21:33)
[2024-07-25 21:45] VITALS: BP 131/83; TEMP 97.7; O2SAT 94
== END 2024-07-25 21:48 | disposition home or self-care (01) ==
LOC: M ED 16:33
DX: K80.50 Calculus of bile duct without cholangitis or cholecystitis without obstruction (principal); I44.5 Left posterior fascicular block; J44.9 Chronic obstructive pulmonary disease, unspecified; E11.9 Type 2 diabetes mellitus without complications; I10 Essential (primary) hypertension; I25.119 Atherosclerotic heart disease of native coronary artery with unspecified angina pectoris; Z88.0 Allergy status to penicillin; Z79.51 Long term (current) use of inhaled steroids; Z79.1 Long term (current) use of non-steroidal anti-inflammatories (NSAID); Z79.899 Other long term (current) drug therapy
CPT/HCPCS: 36415; 71275; 74177; 76705; 80048; 80076; 81001; 82150; 82550; 82553; 83690; 84484; 85025; 85610; 85730; 87086; 93005; 93041; 94760; 99285; Q9967

== ENCOUNTER → 2024-09-14 | Outpatient (CLI) | payer OTHER ==
[~2024-09-14] MED LIST changes: +PERC5TAB12 PO
== END ==
LOC: M RAD 12:10
PROVIDERS: ATTEND Internal Medicine
DX: I65.23 Occlusion and stenosis of bilateral carotid arteries (principal)

== ENCOUNTER → 2024-09-21 | Outpatient (CLI) | payer OTHER | LOC: M RAD 12:08 | PROVIDERS: ATTEND Internal Medicine | DX: I73.9 Peripheral vascular disease, unspecified (principal) ==

== ENCOUNTER → 2025-09-18 | Outpatient (CLI) | payer MEDICARE ==
[~2025-09-18] MED LIST changes: -EZET10TA21 PO; +EZET10TA57 PO; +METF-838 PO
== END ==
LOC: M RAD 16:41
PROVIDERS: ATTEND Internal Medicine Pulmonary Disease
DX: F17.210 Nicotine dependence, cigarettes, uncomplicated (principal)